=== PATIENT | female | born 1930 | race Caucasian/White ===

== ENCOUNTER 2017-12-03 10:31 | Observation (INO) ==
--- NOTE | 2017-12-03 10:41 | Emergency Department Note ---
Disposition Clinical Impression: Chest pain Disposition: Admitted As Inpatient Condition: Good Forms: ED Satisfaction Letter Time of Disposition: 12:52 (moraimajane blanca [facility]) Chest Pain HPI - General Chief Complaint: ED Chest Pain Stated Complaint: Chest Pain Time Seen by Provider: 12/03/17 10:31 Source: patient Mode of arrival: ambulatory Limitations: no limitations Vital Signs Reviewed: Yes Nursing Notes Reviewed: Yes - History of Present Illness HPI Narrative: 87-year-old elderly female who presents emergency room his been having intermittent chest pain for the past couple days but today the pain was much more deeper and intense her causing her to catch her breath she states that she' s had no nausea no vomiting no diaphoresis no radiation up into the neck or jaw pain is localizing on the left-hand side of the chest she denies though any blurred vision double vision loss vision cough hemoptysis or sputum production patient states that she is just very uneasy about this chest pain her key maker is at [place] he has had stents placed prior Pt complaint: chest pain Onset (ago): day(s) (3) Duration: intermittent, gradually worsening Onset: during rest, during exertion Pain Location: substernal, left chest Severity: moderate, severe Severity scale (1-10): 7 Quality: aching Pain Radiation: none Improves with: nothing Worsens with: nothing Associated symptoms: Denies: nausea, vomiting, diaphoresis, dyspnea, sense of impending doom, syncope, palpitations, fever, cough, leg swelling Treatments prior to arrival chest pain: aspirin - Related Data Home Medications Medication Instructions Recorded Confirmed Atorvastatin [Lipitor] 40 mg PO HS 10/24/15 12/03/17 Carvedilol [Coreg] 25 mg PO BID 10/24/15 12/03/17 Clopidogrel [Plavix] 75 mg PO DAILY 10/24/15 12/03/17 Glimepiride [Amaryl] 1 mg PO DAILY 10/24/15 12/03/17 Isosorbide MONOnitrate [Isosorbide 120 mg PO DAILY 10/24/15 12/03/17 Mononitrate ER] Omeprazole [PriLOSEC] 20 mg PO DAILY 10/24/15 12/03/17 Potassium Chloride [Klor-Con] 20 meq PO DAILY 10/24/15 12/03/17 SitaGLIPtin [Januvia] 100 mg PO DAILY 10/24/15 12/03/17 Aspirin [Lo-Dose Aspirin EC] 81 mg PO QAM 05/18/16 12/03/17 HYDROcodone/Acet 5/325 mg [[place] 1 tab PO Q6H PRN 05/18/16 12/03/17 5-325 mg] Digoxin [Lanoxin] 0.125 mg PO QOD 03/18/17 12/03/17 Previous Rx's Medication Instructions Recorded Folic Acid 1 mg PO DAILY #30 tablet 07/24/16 Torsemide [Demadex] 40 mg PO DAILY 365 Days tablet 08/23/16 Cyanocobalamin (B-12) [Vitamin B12] 1,000 mcg PO DAILY #90 tablet 08/02/17 Allergies Allergy/AdvReac Type Severity Reaction Status Date / Time cephalexin [From Keflex] AdvReac See Verified 12/03/17 10:32 Comments All systems ED: reviewed and negative except as stated. Review of Systems: As Per HPI Constitutional: Reports: weakness. Denies: fever, chills Eyes: Denies: eye pain, eye discharge ENT ED: Denies: ear pain, throat pain Cardiovascular: Reports: chest pain. Denies: palpitations, dyspnea on exertion , syncope Respiratory: Denies: cough, dyspnea, wheezes Gastrointestinal: Denies: abdominal pain, nausea, vomiting Genitourinary: Denies: urgency, dysuria, frequency Musculoskeletal: Denies: back pain, neck pain Integumentary: Denies: rash, nipple discharge Neurological: Denies: headache Psychiatric: Denies: anxiety Endocrine: Denies: fatigue Hematological/Lymphatic: Denies: easy bleeding Allergic/Immunologic: Denies: facial swelling Chest Pain PMH - Past Medical History Medical history: Reports: atrial fibrillation, diabetes, hyperlipidemia, hypertension, myocardial infarction Surgical history: Reports: angioplasty/stent, cholecystectomy, hysterectomy, other Psychiatric history: Reports: anxiety TRAUMA THERAPIST history: Reports: no TRAUMA THERAPIST history - Social History Smoking Status: Never smoker Alcohol use: Reports: none Drug use: Reports: none Physical Exam - General Limitations: no limitations General appearance: alert, in no apparent distress, anxious - Head Head exam: atraumatic, normocephalic, normal inspection - Eye Eye exam: Present: normal appearance, PERRL, EOMI - ENT ENT exam: normal exam, normal oropharynx, mucous membranes moist - Neck Neck exam: Present: normal inspection, full ROM, trachea midline - Chest Chest inspection: Present: normal inspection, symmetric chest wall rise - Respiratory Respiratory exam: Present: normal lung sounds bilaterally - Cardiovascular Cardiovascular exam: Present: regular rate, normal rhythm, normal heart sounds - Abdominal Exam Abdominal exam: Present: soft, Non-Tender, normal bowel sounds. Absent: mass, pulsatile mass - Expanded Upper Extremity Exam Shoulder exam: Present: normal inspection, full ROM Arm exam: Present: normal inspection, full ROM Elbow exam: Present: normal inspection, full ROM Forearm/Wrist exam: Present: normal inspection, full ROM Hand exam: Present: normal inspection, full ROM Vascular exam: Normal: capillary refill, radial pulse - Expanded Lower Extremity Exam Hip/Pelvis exam: Present: normal inspection, full ROM Upper leg exam: Present: normal inspection, full ROM Knee exam: Present: normal inspection, full ROM Lower leg exam: Present: normal inspection, full ROM Ankle exam: Present: normal inspection, full ROM Foot/toe exam: Present: normal inspection, full ROM Neurovascular/Tendon exam: Present: normal capillary refill, normal fine/light touch. Absent: motor deficit, sensory deficit, tendon deficit Gait: observed and normal - Back Exam Back exam: Present: normal inspection, full ROM. Absent: muscle spasm - Neurological Exam Neurological exam: Present: alert, oriented X3, CN II-XII intact, normal gait - Psychiatric Psychiatric exam: Present: normal affect, normal mood - Skin Skin exam: Present: warm, dry, intact, normal color Course Course Narrative: Patient seen patient is examined patient has laboratory data done with her age and with underlying history of 6 stents placed in the past recommended observation patient is agreeable transferred to [facility] service of Dr. Altamirano for repeat enzymes patient is aware that if her heart enzymes do the lock she will be transferred to [facility] to services her key maker Vital Signs Temperature 97.9 F 12/03/17 10:34 Pulse Rate 77 12/03/17 10:34 Respiratory Rate 16 12/03/17 10:34 Blood Pressure 135/84 12/03/17 10:34 O2 Sat by Pulse Oximetry 98 12/03/17 10:34 Temperature 97.9 F 12/03/17 10:34 Pulse Rate 71 12/03/17 12:26 Respiratory Rate 17 12/03/17 12:26 Blood Pressure 120/64 12/03/17 12:26 O2 Sat by Pulse Oximetry 96 12/03/17 12:26 Oxygen Delivery Oxygen Delivery Room Air Chest Pain - Differential Diagnosis Likely: chest pain - Medical Records Medical records reviewed: Yes I reviewed the patient's medical records. - Lab Data Lab results reviewed: Yes I reviewed the patient's lab results. Result diagrams: 12/03/17 10:45 12/03/17 10:45 Lab Results 12/03/17 12/03/17 12/03/17 Range/Units 10:45 10:45 10:45 WBC 2.7 L (4.3-11.1) K/mcL RBC 3.04 L (3.82-4.97) M/mcL Hgb 10.0 L (11.5-15.4) g/dL Hct 32.6 L (35.3-44.9) % MCV 107.2 H (83.0-100.0) fL MCH 32.9 (28.0-33.3) pg MCHC 30.7 L (31.6-35.5) g/dL RDW 14.6 H (11.5-14.5) % Plt Count 72 L (140-400) K/mcL MPV 10.2 (9.4-12.4) fL Immature Gran % 0.0 (0-4) % Seg Neutrophils % 73.0 % Lymphocytes % 16.8 % Monocytes % 6.9 % Eosinophils % 2.6 % Basophils % 0.7 % Neutrophils # 2.0 (1.6-8.9) K/mcL Lymphocytes # 0.5 L (0.6-4.6) K/mcL Monocytes # 0.2 (0.0-1.3) K/mcL Eosinophils # 0.1 (0.0-0.6) K/mcL Basophils # 0.0 (0.0-0.2) K/mcL PT (9.4-12.1) Seconds INR APTT 35.8 (26.0-36.0) Seconds Sodium (136-145) mEq/L Potassium (3.5-5.1) mEq/L Chloride (98-107) mEq/L Carbon Dioxide (23-29) mEq/L BUN (8-23) mg/dL Creatinine (0.60-1.20) mg/dL Est GFR ( Amer) (> 60) Est GFR (Non-Af Amer) (> 60) BUN/Creatinine Ratio (6-26) Glucose (70-105) mg/dL Calculated Osmolality (280-300) Calcium (8.6-10.3) mg/dL Total Bilirubin (0.3-1.0) mg/dL AST (13-39) Units/L ALT (7-52) Units/L Alkaline Phosphatase (34-104) Units/L Troponin I (< 0.04) ng/mL B-Natriuretic Peptide 407 H (Less than 100) pg/mL Serum Total Protein (6.4-8.9) g/dL Albumin (3.5-5.7) g/dL Globulin (2.4-3.5) g/dL Albumin/Globulin Ratio (1.1-2.2) TSH (0.340-5.600) mcIU/mL Urine Color (Yellow) Urine Clarity (Clear) Urine pH (5.0-8.0) pH Units Ur Specific [place] (1.010-1.025) Urine Protein (Neg-Trace) mg/dL Urine Glucose (UA) (Normal) mg/dL Urine Ketones (Negative) mg/dL Urine Blood (Negative) Urine Nitrite (Negative) Urine Bilirubin (Negative) Urine Urobilinogen (Normal) mg/dL Ur Leukocyte Esterase (Negative) Urine Microscopic RBC (0-3) per hpf Urine Microscopic WBC (0-3) per hpf Ur Squamous Epith Cells (None-Few) per lpf Urine Bacteria (None-Few) per hpf Ur Culture Indicated? (NO) 12/03/17 12/03/17 12/03/17 Range/Units 10:45 10:45 11:55 WBC (4.3-11.1) K/mcL RBC (3.82-4.97) M/mcL Hgb (11.5-15.4) g/dL Hct (35.3-44.9) % MCV (83.0-100.0) fL MCH (28.0-33.3) pg MCHC (31.6-35.5) g/dL RDW (11.5-14.5) % Plt Count (140-400) K/mcL MPV (9.4-12.4) fL Immature Gran % (0-4) % Seg Neutrophils % % Lymphocytes % % Monocytes % % Eosinophils % % Basophils % % Neutrophils # (1.6-8.9) K/mcL Lymphocytes # (0.6-4.6) K/mcL Monocytes # (0.0-1.3) K/mcL Eosinophils # (0.0-0.6) K/mcL Basophils # (0.0-0.2) K/mcL PT 13.1 H (9.4-12.1) Seconds INR 1.2 APTT (26.0-36.0) Seconds Sodium 140 (136-145) mEq/L Potassium 4.1 (3.5-5.1) mEq/L Chloride 108 H (98-107) mEq/L Carbon Dioxide 28 (23-29) mEq/L BUN 26 H (8-23) mg/dL Creatinine 1.15 (0.60-1.20) mg/dL Est GFR ( Amer) 54 L (> 60) Est GFR (Non-Af Amer) 45 L (> 60) BUN/Creatinine Ratio 23 (6-26) Glucose 161 H (70-105) mg/dL Calculated Osmolality 298 (280-300) Calcium 9.3 (8.6-10.3) mg/dL Total Bilirubin 0.6 (0.3-1.0) mg/dL AST 12 L (13-39) Units/L ALT 9 (7-52) Units/L Alkaline Phosphatase 82 (34-104) Units/L Troponin I < 0.03 (< 0.04) ng/mL B-Natriuretic Peptide (Less than 100) pg/mL Serum Total Protein 6.3 L (6.4-8.9) g/dL Albumin 3.8 (3.5-5.7) g/dL Globulin 2.5 (2.4-3.5) g/dL Albumin/Globulin Ratio 1.5 (1.1-2.2) TSH 2.059 (0.340-5.600) mcIU/mL Urine Color Yellow (Yellow) Urine Clarity Slightly Cloudy A (Clear) Urine pH 5.5 (5.0-8.0) pH Units Ur Specific [place] 1.025 (1.010-1.025) Urine Protein 30 H (Neg-Trace) mg/dL Urine Glucose (UA) Normal (Normal) mg/dL Urine Ketones Negative (Negative) mg/dL Urine Blood Negative (Negative) Urine Nitrite Negative (Negative) Urine Bilirubin Small H (Negative) Urine Urobilinogen Normal (Normal) mg/dL Ur Leukocyte Esterase Small H (Negative) Urine Microscopic RBC 0-3 (0-3) per hpf Urine Microscopic WBC 50-100 H (0-3) per hpf Ur Squamous Epith Cells Many H (None-Few) per lpf Urine Bacteria Moderate H (None-Few) per hpf Ur Culture Indicated? NO. A (NO) - Radiology Data Radiology results reviewed: Yes I reviewed the patient's radiology results. ITS Impressions Chest X-Ray 12/03/17 10:34 IMPRESSION: 1. No significant interval change since previous examination. 2. Persistently enlarged cardiomediastinal silhouette, with a small bilateral pleural effusions. D/ / Otoniel Hunt MD / Otoniel Hunt MD Interpreting Provider: Otoniel Hunt MD - EKG Data EKG attestation: Yes I reviewed and interpreted this EKG. EKG results narrative: EKG atrial fib old inferior wall anterior septal old rate 84 [place] - QRS 91 QT 367 access 4 Heart Score - Score History: Slightly Suspicious EKG: Non Specific repolarisation Disturbance Age: Greater than 65 Risk Factors: 1-2 risk factors Troponin: Less than normal limit HEART Score Total: 4 Critical Care Time Critical Care Time: No
[2017-12-03 10:59] LABS: Basophils % 0.7 %; Eosinophils # 0.1 K/mcL (0.0-0.6); Eosinophils % 2.6 %; Hematocrit 32.6 % (35.3-44.9); Lymphocytes # 0.5 K/mcL (0.6-4.6); Lymphocytes % 16.8 %; Mean Corpuscular HGB Conc 30.7 g/dL (31.6-35.5); Mean Corpuscular Hemoglobin 32.9 pg (28.0-33.3); Mean Corpuscular Volume 107.2 fL (83.0-100.0); Mean Platelet Volume 10.2 fL (9.4-12.4); Monocytes # 0.2 K/mcL (0.0-1.3); Monocytes % 6.9 %; Red Blood Count 3.04 M/mcL (3.82-4.97); Red Cell Distribution Width 14.6 % (11.5-14.5)
[2017-12-03 11:05] LABS: Platelet Count 72 K/mcL (140-400)
[2017-12-03 11:11] LABS: INR 1.2; Prothrombin Time 13.1 Seconds (9.4-12.1)
[2017-12-03 11:15] LABS: Alanine Aminotransferase 9 Units/L (7-52); Albumin 3.8 g/dL (3.5-5.7); Albumin/Globulin Ratio 1.5 (1.1-2.2); Alkaline Phosphatase 82 Units/L (34-104); Aspartate Amino Transferase 12 Units/L (13-39); BUN/Creatinine Ratio 23 (6-26); Bilirubin,Total 0.6 mg/dL (0.3-1.0); Blood Urea Nitrogen 26 mg/dL (8-23); Calcium 9.3 mg/dL (8.6-10.3); Carbon Dioxide 28 mEq/L (23-29); Chloride 108 mEq/L (98-107); Globulin 2.5 g/dL (2.4-3.5); Glucose 161 mg/dL (70-105); Osmolality,Calculated 298 (280-300); Potassium 4.1 mEq/L (3.5-5.1); Sodium 140 mEq/L (136-145); Total Protein 6.3 g/dL (6.4-8.9); eGFR For African Americans 54 (> 60); eGFR For Non-African Americans 45 (> 60)
[2017-12-03 11:23] LABS: Troponin I < 0.03 ng/mL (< 0.04)
[2017-12-03 11:37] LABS: Thyroid Stimulating Hormone 2.059 mcIU/mL (0.340-5.600)
[2017-12-03 12:01] LABS: Bilirubin,Urine Small (Negative); Blood,Urine Negative (Negative); Clarity,Urine Slightly Cloudy (Clear); Color,Urine Yellow (Yellow); Glucose,Urine (UA) Normal (Normal); Ketones,Urine Negative (Negative); Leukocyte Esterase,Urine Small (Negative); Nitrite,Urine Negative (Negative); PH,Urine 5.5 pH Units (5.0-8.0); Protein,Urine 30 mg/dL (Neg-Trace); Specific Gravity,Urine 1.025 (1.010-1.025); Urobilinogen,Urine Normal (Normal)
[2017-12-03 12:08] LABS: Bacteria,Urine Moderate per hpf (None-Few); RBC,Urine 0-3 per hpf (0-3); Squamous Epithelial Cell,Urine Many per lpf (None-Few); WBC,Urine 50-100 per hpf (0-3)
[2017-12-03] MEDS ORDERED: Aspirin 81 MG TAB.CHEW PO ONE (12:44)
[2017-12-03] MEDS ORDERED: *HR* HYDROcodone/Acet 5/325 mg TABLET PO PRN (13:50)
[2017-12-03] MEDS ORDERED: Naloxone 0.4 MG/ML INJ IVP PRN (13:50)
[2017-12-03] MEDS ORDERED: 0.9 % Sodium Chloride 1,000 ML IVC SCH (13:50)
[2017-12-03] MEDS ORDERED: *HR* Digoxin 0.125 MG TABLET PO SCH (14:30)
--- NOTE | 2017-12-03 16:10 | Electrocardiograph Report ---
[address] [place], [place] [address] Test Date: 2017-12-03 Pat Name: Ronald Baker Department: [id number] Room: [facility] Gender: F Fur Feeder: [id number] : 1930 Requested By: Roshni Flores Order Number: [id number] Reading MD: Rufino Higgins Measurements Intervals [place] Rate: 84 P: ME: 0 QRS: 4 QRSD: 91 T: 36 QT: 367 QTc: 409 Interpretive Statements ATRIAL FIBRILLATION LOW QRS VOLTAGE IN EXTREMITY LEADS INFERIOR MYOCARDIAL INFARCTION, PROBABLY OLD ANTEROSEPTAL MYOCARDIAL INFARCTION, PROBABLY OLD Electronically Signed On 12-03-2017 16:09:08 EDT by Rufino Higgins
--- NOTE | 2017-12-03 16:55 | Internal Med History&Physical ---
Date of Encounter: 12/03/17 Time of Encounter: 14:15 Assessment and Plan (1) Chest pain Current visit: Yes Status: Acute Suspect costochondritis. I will give her a single dose of ibuprofen and start her on prednisone. Repeat cardiac enzymes have been ordered. Qualifiers: Chest pain type: precordial pain Qualified Code(s): R07.2 - Precordial pain (2) Congestive heart failure Current visit: No Status: Chronic Continue Coreg, Lanoxin, Imdur, and Demadex. Qualifiers: Qualified Code(s): I50.22 - Chronic systolic (congestive) heart failure (3) Pancytopenia Current visit: No Status: Chronic Stable. As per hematology/oncology: (4) CKD (chronic kidney disease) stage 3, GFR 30-59 ml/min Current visit: No Status: Chronic Renal indices stable. We will monitor as needed. (5) DM type 2 (diabetes mellitus, type 2) Current visit: No Status: Chronic Hemoglobin A1c acceptable at 7.0% on 06/17/2017. Continue present regimen of Amaryl and Januvia. Qualifiers: Diabetes mellitus complication status: with kidney complications Diabetes mellitus complication detail: with chronic kidney disease Chronic kidney disease stage: stage 3 (moderate) Qualified Code(s): E11.22 - Type 2 diabetes mellitus with diabetic chronic kidney disease; N18.3 - Chronic kidney disease, stage 3 (moderate) (6) Atrial fibrillation Current visit: No Status: Chronic Continue aspirin and Plavix. Will not give oral anticoagulation because of previous internal bleeding with Xarelto. Qualifiers: Atrial fibrillation type: chronic Qualified Code(s): I48.2 - Chronic atrial fibrillation Internal Medicine - H&P: HPI Chief complaint: Chest discomfort Admitted From: Emergency Dept Plans for Post Hospital Care: Home History of present illness: Ms. Baker is a 87 year old female who came to emergency room stating she had developed discomfort in her chest on December 01 while at leisure. She describes it as a dull fullness sensation. There was dyspnea associated but no cough. She reports the pain level was approximate 7/10. The pain gradually decreased after several hours to level 2/10. The following day he remained low level but on awakening this morning it had worsened and she decided to come to emergency room. She was evaluated and admitted [facility] for ongoing care needs. She denies previous similar pain. She does not get angina or anginal equivalents pain on exertion. She does have some dyspnea on exertion. She has a history of hypertension. She has known ASHD status post [place] 2010 followed by 5 stents. She had a previous stent in place also. A Regadenoson stress test showed nondiagnostic EKG changes for ischemia and perfusion imaging negative for ischemia. An echocardiogram done 04/09/2017 showed LVEF of 45%. Interventricular septum and posterior wall thickness measurements were elevated at 1.40 and 1.20 cm respectively. There was reported biatrial enlargement. There was mild to moderate aortic regurgitation, [id number] mitral regurgitation, and severe tricuspid regurgitation with pulmonary hypertension and estimated RVSP of 75 mmHg. There was mild pulmonic regurgitation. She has chronic atrial fibrillation diagnosed 2013. She was given a trial Xarelto but developed significant internal bleeding and it was discontinued. She continued on Plavix and was given aspirin. Past Med Surg Social Fam HX - Past Medical History Medical history: atrial fibrillation, diabetes, hyperlipidemia, hypertension, myocardial infarction Psychiatric history: anxiety - Past Surgical History Surgical History: angioplasty/stent, cholecystectomy, hysterectomy, other Additional surgical history: Back surgery - Social History Smoking Status: Never smoker Smokeless Tobacco Status: No Alcohol use: none Drug use: none - Family History Sister Adopted: No Family Member Ethnicity: Non- Living Status: Still Living Hx Family Cardiac Disorders: Yes Hx Family Respiratory Disorders: No Hx Family Cancer: No Hx Family GI Disorders: No Hx Family Endocrine Disorder: No Hx Family Neuromuscular Disorders: No Hx Family Neurologic Disorders: No Hx Family HEENT Disorders: No Hx Family Autoimmune Disorders: No Internal Medicine - H&P: Meds Atorvastatin [Lipitor] 40 mg PO HS 10/24/15 [History] Carvedilol [Coreg] 25 mg PO BID 10/24/15 [History] Clopidogrel [Plavix] 75 mg PO DAILY 10/24/15 [History] Glimepiride [Amaryl] 1 mg PO DAILY 10/24/15 [History] Isosorbide MONOnitrate [Isosorbide Mononitrate ER] 120 mg PO DAILY 10/24/15 [ History] Omeprazole [PriLOSEC] 20 mg PO DAILY 10/24/15 [History] Potassium Chloride [Klor-Con] 20 meq PO DAILY 10/24/15 [History] SitaGLIPtin [Januvia] 100 mg PO DAILY 10/24/15 [History] Aspirin [Lo-Dose Aspirin EC] 81 mg PO QAM 05/18/16 [History] HYDROcodone/Acet 5/325 mg [[place] 5-325 mg] 1 tab PO Q6H PRN 05/18/16 [History] Folic Acid 1 mg PO DAILY #30 tablet 07/24/16 [Rx] Torsemide [Demadex] 40 mg PO DAILY 365 Days tablet 08/23/16 [Rx] Digoxin [Lanoxin] 0.125 mg PO QOD 03/18/17 [History] Cyanocobalamin (B-12) [Vitamin B12] 1,000 mcg PO DAILY #90 tablet 08/02/17 [Rx] 3 Allergy/AdvReac Type Severity Reaction Status Date / Time cephalexin [From Keflex] AdvReac See Verified 12/03/17 10:32 Comments All Systems PM: A 10-system review of systems was performed and is negative for pertinent findings except as documented above in the HPI. Review of systems: Review of systems from her May 2016 [facility] hospitalization were reviewed and revised as below. Gen.: Her weight has minimally changed from 63.5 kg at the December 2015 hospitalization to 64.864 kg on admission now. Cardiovascular: As per history of present illness Respiratory:she is a lifelong nonsmoker and has no known chronic lung disease. GI: She had GI bleed when given Xarelto approximately 2 years ago as described above. She has had cholecystectomy. She denies disorders of her liver or exocrine pancreas. : She has chronic disease stage III but does not follow with a advertising manager. She denies other kidney or bladder disorders Neurologic: She denies large distribution strokes or seizures Endocrine: She was diagnosed with DM 2 approximately 2012. She has a diagnosis of hyperlipidemia but denies known thyroid disease. Hematology/oncology: She has pancytopenia and follows with [facility] hematology/ oncology. She declined bone marrow biopsy and was placed on prednisone 20 mg daily but this was discontinued in November 2015. Consideration of MDS is noted by oncologist. She denies known internal malignancies. She did have abnormal GIANLUCA titers of 1:160 Psychiatric: She has anxiety but no significant depression or other mental health issues. 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 - Constitutional Vitals: Temp Pulse Resp BP Pulse Ox 97.9 F 73 17 130/71 97 12/03/17 10:34 12/03/17 13:30 12/03/17 13:30 12/03/17 13:30 12/03/17 13:30 Exam: Gen.: She is a well-developed well-nourished female resting comfortably in bed who appears in no severe distress at present time HEENT: Head is atraumatic and normocephalic. Eyes: EOMI. There is no scleral icterus. Mouth: Mucosa is moist. Neck: Supple and nontender. There is no thyromegaly or adenopathy noted. Heart: Regular without murmurs gallops or ectopics Chest: She has tenderness in her left lower costosternal joint stating "that is the pain" when compression is applied. Lungs: No wheezes or crackles are heard. Abdomen: Soft and nontender. No masses or guarding are noted. Extremities: She has trace to 1+ edema of the dorsum of the feet and lower legs. Dorsalis pedis pulses 2 over 2 bilaterally. Posterior tibial pulses are not palpable. She has DJD changes of her hands. Neurologic: Mental status: She is talkative and a good historian. Cranial nerves: Smile is symmetric. Forehead wrinkles bilaterally. Tongue protrudes midline. EOMI. Motor: There is no pronator drift. Cerebellar: finger to nose is intact bilaterally. Skin: Warm and dry Internal Med - H&P Results - Labs CBC & Chem 7: 12/03/17 10:45 12/03/17 10:45
[2017-12-03] MEDS ORDERED: Ibuprofen 400 MG TABLET PO ONE (17:08)
[2017-12-03] MEDS: predniSONE 20 MG TABLET PO SCH (18:45)
[2017-12-04 06:11] LABS: Basophils % 0.5 %; Eosinophils % 0.5 %; Hematocrit 33.2 % (35.3-44.9); Hemoglobin 10.4 g/dL (11.5-15.4); Immature Granulocytes % 0.5 % (0-4); Lymphocytes # 0.3 K/mcL (0.6-4.6); Lymphocytes % 15.2 %; Mean Corpuscular HGB Conc 31.3 g/dL (31.6-35.5); Mean Corpuscular Hemoglobin 33.2 pg (28.0-33.3); Mean Corpuscular Volume 106.1 fL (83.0-100.0); Mean Platelet Volume 10.7 fL (9.4-12.4); Monocytes # 0.1 K/mcL (0.0-1.3); Monocytes % 2.7 %; Neutrophils # 1.5 K/mcL (1.6-8.9); Red Blood Count 3.13 M/mcL (3.82-4.97); Red Cell Distribution Width 14.6 % (11.5-14.5); Segmented Neutrophils % 80.6 %
[2017-12-04 06:23] LABS: Platelet Count 82 K/mcL (140-400)
[2017-12-04 06:36] LABS: BUN/Creatinine Ratio 19 (6-26); Blood Urea Nitrogen 20 mg/dL (8-23); Calcium 9.4 mg/dL (8.6-10.3); Carbon Dioxide 24 mEq/L (23-29); Chloride 108 mEq/L (98-107); Glucose 302 mg/dL (70-105); Osmolality,Calculated 300 (280-300); Potassium 4.6 mEq/L (3.5-5.1); Sodium 138 mEq/L (136-145); eGFR For African Americans > 60 (> 60); eGFR For Non-African Americans 50 (> 60)
[2017-12-04 06:38] LABS: Platelet Estimate Decreased (Normal)
[2017-12-04] MEDS ORDERED: *HR* Glimepiride 2 MG TABLET PO SCH (08:00)
[2017-12-04] MEDS: predniSONE 20 MG TABLET PO SCH (08:10)
[2017-12-04 08:41] VITALS: BP 158/76
[2017-12-04] MEDS ORDERED: Torsemide 20 MG TABLET PO SCH (09:00)
[2017-12-04] MEDS ORDERED: Isosorbide MONOnitrate (24 HR) 60 MG TAB.ER.24H PO SCH (09:00)
[2017-12-04] MEDS ORDERED: Aspirin Enteric Coated 81 MG Tablet PO SCH (09:00)
[2017-12-04] MEDS ORDERED: Folic Acid 1 MG TABLET PO SCH (09:00)
[2017-12-04] MEDS ORDERED: *HR* SitaGLIPtin 25 MG TABLET PO SCH (09:00)
[2017-12-04] MEDS ORDERED: Cyanocobalamin (B-12) 1,000 MCG TABLET PO SCH (09:00)
--- NOTE | 2017-12-04 11:02 | Discharge Summary ---
Date of Encounter: 12/04/17 Time of Encounter: 10:50 - Discharge Diagnosis (1) Chest pain Priority: Primary Status: Acute Qualifiers: Chest pain type: precordial pain Qualified Code(s): R07.2 - Precordial pain (2) Congestive heart failure Priority: Secondary Status: Chronic Qualifiers: Qualified Code(s): I50.22 - Chronic systolic (congestive) heart failure (3) Pancytopenia Priority: Secondary Status: Chronic (4) CKD (chronic kidney disease) stage 3, GFR 30-59 ml/min Priority: Secondary Status: Chronic (5) DM type 2 (diabetes mellitus, type 2) Priority: Secondary Status: Chronic Qualifiers: Diabetes mellitus complication status: with kidney complications Diabetes mellitus complication detail: with chronic kidney disease Chronic kidney disease stage: stage 3 (moderate) Qualified Code(s): E11.22 - Type 2 diabetes mellitus with diabetic chronic kidney disease; N18.3 - Chronic kidney disease, stage 3 (moderate) (6) Atrial fibrillation Priority: Secondary Status: Chronic Qualifiers: Atrial fibrillation type: chronic Qualified Code(s): I48.2 - Chronic atrial fibrillation Hospital course: Ms. Baker is a 87 year old female who came to emergency room stating she had developed discomfort in her chest on December 01 while at leisure. She describes it as a dull fullness sensation. There was dyspnea associated but no cough. She reports the pain level was approximate 7/10. The pain gradually decreased after several hours to level 2/10. The following day he remained low level but on awakening this morning it had worsened and she decided to come to emergency room. She was evaluated and admitted to [facility] for ongoing care needs. Initial orders were written by the emergency room physician. I saw her on December 03 and performed the history and physical. Repeat cardiac enzymes showed no evidence of myocardial damage. When I saw her I did not think the pain was likely of myocardial ischemic origin. I felt it was likely of chest wall origin. She was given a single dose of ibuprofen and started on prednisone. The following day her pain had significantly improved and almost resolved. She felt stable for discharge home which I felt was reasonable. She will follow with her PCP within 1 week. - Time Spent with Patient Total time spent providing and/or coordinating discharge services: - Discharge Medications Home Medications: Atorvastatin [Lipitor] 40 mg PO HS 10/24/15 [History] Carvedilol [Coreg] 25 mg PO BID 10/24/15 [History] Clopidogrel [Plavix] 75 mg PO DAILY 10/24/15 [History] Glimepiride [Amaryl] 1 mg PO DAILY 10/24/15 [History] Isosorbide MONOnitrate [Isosorbide Mononitrate ER] 120 mg PO DAILY 10/24/15 [ History] Omeprazole [PriLOSEC] 20 mg PO DAILY 10/24/15 [History] Potassium Chloride [Klor-Con] 20 meq PO DAILY 10/24/15 [History] SitaGLIPtin [Januvia] 100 mg PO DAILY 10/24/15 [History] Aspirin [Lo-Dose Aspirin EC] 81 mg PO QAM 05/18/16 [History] HYDROcodone/Acet 5/325 mg [[place] 5-325 mg] 1 tab PO Q6H PRN 05/18/16 [History] Folic Acid 1 mg PO DAILY #30 tablet 07/24/16 [Rx] Torsemide [Demadex] 40 mg PO DAILY 365 Days tablet 08/23/16 [Rx] Digoxin [Lanoxin] 0.125 mg PO QOD 03/18/17 [History] Cyanocobalamin (B-12) [Vitamin B12] 1,000 mcg PO DAILY #90 tablet 08/02/17 [Rx] Allergies/Adverse Reactions: 3 Allergy/AdvReac Type Severity Reaction Status Date / Time cephalexin [From Keflex] AdvReac See Verified 12/03/17 10:32 Comments Date of admission: 12/03/17 13:36 Primary care physician: Briana Abarca CNP - Constitutional Vitals: Temp Pulse Resp BP Pulse Ox 99 F 92 17 158/76 96 12/04/17 06:00 12/04/17 06:00 12/04/17 06:00 12/04/17 06:00 12/04/17 06:00 - Patient Status Disposition: Home, Self-Care Condition: Good Overall status at discharge: patient is progressing back to baseline - Discharge Instructions Follow Up With: Briana Abarca CNP [Primary Care Provider] - 1 week - Diet and Activity Activity: resume usual activities as tolerated Diet: advance to your usual diet
== END 2017-12-04 12:30 | disposition home or self-care (01) ==
LOC: INPPIK 10:31 → EMEROOPIK 10:31 → INPPIK 13:45
PROVIDERS: ADMIT Internal Medicine; ATTEND Internal Medicine